=== PATIENT | female | born 1995 | race Caucasian/White ===

== ENCOUNTER 2019-09-14 14:33 | Emergency (ER) | payer MEDICAID, OTHER, SELFPAY ==
[~2019-09-14] VITALS: Ht 162.6 cm; Wt 77.3 kg
[2019-09-14] MEDS ORDERED: VALT500T PO (15:14)
[2019-09-14] MEDS ORDERED: ALBUTEROL SULFATE 2.5 MG/0.5 ML INH NEB SOLN INH ONE (16:15)
[2019-09-14] MEDS ORDERED: ALBU83IN NEB (16:53)
[2019-09-14] MEDS ORDERED: PREN29TA4 PO (16:55)
[2019-09-14] MEDS ORDERED: AUGM875T28 PO (16:55)
[2019-09-14 16:58] VITALS: BP 131/70
== END 2019-09-14 17:02 | disposition home or self-care (01) ==
LOC: M ED 14:33
DX: J20.9 Acute bronchitis, unspecified (principal); Z32.01 Encounter for pregnancy test, result positive